=== PATIENT | male | born 1940 | race Asian ===

== ENCOUNTER 2016-07-13 07:58 | Emergency (ER) | payer MEDICARE, OTHER ==
[~2016-07-13] VITALS: Ht 167.6 cm; Wt 68.0 kg
[2016-07-13 08:30] VITALS: BP 152/99
[2016-07-13] MEDS ORDERED: TdaP Vaccine 0.5ml Syr IM ONE (08:30)
[2016-07-13] MEDS ORDERED: Bacitracin Oint UD TOPIC ONE ×2 (08:38→09:00)
[2016-07-13] MEDS ORDERED: Ketorolac 30mg Inj IV ONE (09:00)
[2016-07-13] MEDS: Ketorolac 60mg Inj IM ONE ×2 (09:15→09:17)
[2016-07-13] MEDS ORDERED: UNOBMED (09:53)
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
[2016-07-13] MEDS ORDERED: WHEELCHAIR1 EACH MC (13:46)
[2016-07-13] MEDS ORDERED: ACETAMINOPHEN500 M3 ORAL (13:46)
[2016-07-13 14:00] VITALS: BP 136/74
== END 2016-07-13 14:08 | disposition home or self-care (01) ==
LOC: EDBD 07:58 → EMR 08:30
DX: S82.831A Other fracture of upper and lower end of right fibula, initial encounter for closed fracture (principal); S90.811A Abrasion, right foot, initial encounter; S80.211A Abrasion, right knee, initial encounter; K21.9 Gastro-esophageal reflux disease without esophagitis; Z85.048 Personal history of other malignant neoplasm of rectum, rectosigmoid junction, and anus; Z23 Encounter for immunization; V03.10XA Pedestrian on foot injured in collision with car, pick-up truck or van in traffic accident, initial encounter; Y92.488 Other paved roadways as the place of occurrence of the external cause; Y99.8 Other external cause status
CPT/HCPCS: 29515; 90471; 90715; 96372; 99284